=== PATIENT | male | born 1960 | race Caucasian/White ===

== ENCOUNTER 2017-02-24 19:29 | Inpatient (IN) | payer OTHER ==
[~2017-02-24] VITALS: Ht 167.6 cm; Wt 102.3 kg
[2017-02-24 20:03] VITALS: BP 181/86; PULSE 77; RESP 18; TEMP 98.7; O2SAT 92
[2017-02-25] VITALS (9 sets, daily range): BP systolic 131–184; BP diastolic 74–92; PULSE 64–92; RESP 16–18; TEMP 98–98.8; O2SAT 90–98
[2017-02-25] MEDS ORDERED: TETANUS/DIPHTHERIA TOXOID ADULT 0.5 ML VIAL IM ONE (00:30)
[2017-02-25] MEDS ORDERED: METF500T PO (00:42)
[2017-02-25] MEDS ORDERED: SIMV40TA PO ×2 (00:44→13:35)
[2017-02-25] MEDS ORDERED: HYDR25TA5 PO (00:44)
[2017-02-25] MEDS ORDERED: FLUO40CA PO (00:44)
[2017-02-25] MEDS ORDERED: GLIP10TA6 PO ×2 (00:44→13:35)
[2017-02-25] MEDS ORDERED: SODIUM CHLORIDE 0.9% FLUSH 10 ML FLUSH IV FLUSH PRN ×2 (00:45→01:45)
[2017-02-25] MEDS ORDERED: AMPICILLIN-SULBACTAM INJ 3 GM in SODIUM CHLORIDE 0.9% INJ 100 ML IV ONE (00:45)
[2017-02-25] MEDS ORDERED: MORPHINE SULFATE 4 MG/ML INJ IV PUSH ONE (00:45)
--- NOTE | 2017-02-25 00:53 | RADRPT ---
EXAM DATE/TIME: 02/25/2017 00:41 [facility] COMPARISON: No previous studies available for comparison. INDICATIONS : Dog bite right hand. MEDICAL HISTORY : None. SURGICAL HISTORY : None. ENCOUNTER: Initial ACUITY: 1 day PAIN SCORE: 6/10 LOCATION: Right hand. FINDINGS: There is a fracture of the distal phalanx right thumb with about 4 mm of displacement. Remote right f ifth metacarpal fracture. No radiopaque foreign body. CONCLUSION: 1. Fracture distal phalanx right thumb. No radiopaque foreign body. Alex Davila MD on February 25, 2017 at 0:50 Board Certified Radiologist. This report was verified electronically.
[2017-02-25 01:18] LABS: BASOPHIL # 0.1 TH/MM3 (0-0.2); BASOPHIL % 1.6 % (0.0-2.0); EOSINOPHIL # 0.2 TH/MM3 (0-0.4); EOSINOPHIL % 1.7 % (0.0-4.0); HEMATOCRIT 42.9 % (39.0-51.0); HEMO FLAGS DIFF FINAL; LYMPH % 23.6 % (9.0-44.0); LYMPHOCYTE # 2.2 TH/MM3 (1.0-4.8); MEAN CELL VOLUME 78.7 FL (80.0-100.0); MEAN CORPUSCULAR HEMOGLOBIN 25.4 PG (27.0-34.0); MEAN CORPUSCULAR HGB CONC 32.2 % (32.0-36.0); MONO % 8.1 % (0.0-8.0); PLATELET COUNT 292 TH/MM3 (150-450); RED BLOOD COUNT 5.45 MIL/MM3 (4.50-5.90); RED CELL DISTRIBUTION WIDTH 13.9 % (11.6-17.2); WHITE BLOOD COUNT 9.3 TH/MM3 (4.0-11.0)
[2017-02-25 01:28] LABS: POTASSIUM 3.9 MEQ/L (3.5-5.1)
[2017-02-25 01:31] LABS: BICARBONATE 27.4 MEQ/L (21.0-32.0)
[2017-02-25] MEDS ORDERED: SODIUM CHLOR 0.9% 1000 ML INJ 1,000 ML IV SCH (01:32)
[2017-02-25 01:34] LABS: APTT (PATIENT) 25.4 SEC (24.3-30.1); INTERNATIONAL NORMALIZED RATIO 0.9 RATIO; PROTHROMBIN TIME - PATIENT 10.4 SEC (9.8-11.6)
[2017-02-25] MEDS ORDERED: NALOXONE HCL 0.4 MG/ML AMP IV PRN (01:45)
--- NOTE | 2017-02-25 01:47 | PD ---
HPI Chief Complaint: Bite or Sting Time Seen by Provider: 00:27 Travel History International Travel<30 days: No Contact w/Intl Traveler<30days: No Traveled to known affect area: No History of Present Illness HPI 56-year-old male here for evaluation of dog bite to his right thumb. Patient reports that 2 of his dogs were playing with each other when he put his hand between them and was accidentally bitten by a history of an Arboleda. His dog is up-to-date with immunizations including rabies. He sustained a deep laceration to his right thumb as well as a puncture wound to his right index and middle fingers. Pain is moderate, constant, worse with movement and palpation. He denies any other injuries. Date of last tetanus was in 2010. Bite occurred at around 7:00 PM. [facility] Past Medical History High Cholesterol: Yes Diabetes: Yes Patient Takes Glucophage: Yes Hypertension: Yes Neurologic: Yes (CHRONIC PAIN) ?: Not Past Surgical History Abdominal Surgery: Yes (HERNIA) Social History Alcohol Use: No Tobacco Use: No Substance Use: No Allergies-Medications (Allergen,Severity, Reaction): Coded Allergies: No Known Allergies (Unverified , 02/25/17) Reported Meds & Prescriptions Reported Meds & Active Scripts Active Reported Hydrochlorothiazide 25 Mg Tab 25 Mg PO DAILY Simvastatin 40 Mg Tab 40 Mg PO HS Glipizide 10 Mg Tab 10 Mg PO DAILY Take 30 minutes before a meal Fluoxetine (Fluoxetine HCl) 40 Mg Cap 40 Cap PO DAILY Metformin (Metformin HCl) 500 Mg Tab 500 Mg PO BIDPC With meals Review of Systems Except as stated in HPI: all other systems reviewed are Neg Physical Exam Narrative GENERAL: Well-developed, well-nourished, comfortable, no apparent distress. SKIN: Deep laceration to right thumb through the nail bed extending laterally around to the volar aspect of the distal thumb. There is mild venous oozing. No obvious visible contaminants. The patient has a puncture wound to his right index finger lateral to the PIP joint. He also has a puncture wound to his right third finger over his proximal phalanx laterally/dorsally. CARDIOVASCULAR: Regular rate and rhythm. Normal capillary refill to all fingers and right hand. RESPIRATORY: No accessory muscle use. MUSCULOSKELETAL: Skin exam as above. Patient is able to extend his right thumb , however is having difficulty fully extending the thumb. Normal range of opposition and flexion of the right thumb. Normal capillary refill to the right thumb. There is obvious deformity to the distal phalanx of the thumb with likely open fracture. X-ray ordered. NEUROLOGICAL: Awake and alert. No obvious cranial nerve deficits. Motor grossly within normal limits. Normal speech. Patient reports sensation throughout his entire right thumb, however feels as though the distal aspect of the thumb is a little numb with pin prick testing. PSYCHIATRIC: Appropriate mood and affect; insight and judgment normal. Data Data Last Documented VS Vital Signs Date Time Temp Pulse Resp B/P (MAP) Pulse Ox O2 Delivery O2 Flow Rate FiO2 02/24/17 20:03 98.7 77 18 181/86 (117) 92 Orders Orders Hand, Complete ([id number]) (02/25/17 ) Tetanus/Diphtheria Tox Adult (Tetanus/Di (02/25/17 00:30) Basic Metabolic Panel (Bmp) (02/25/17 00:37) Complete Blood Count With Diff (02/25/17 00:37) Prothrombin Time / Inr (Pt) (02/25/17 00:37) Act Partial Throm Time (Ptt) (02/25/17 00:37) Iv Access Insert/Monitor (02/25/17 00:37) Sodium Chloride 0.9% Flush (Ns Flush) (02/25/17 00:45) Ampicillin-Sulbactam Inj (Unasyn Inj) (02/25/17 00:45) Morphine Inj (Morphine Inj) (02/25/17 00:45) Diet Npo (02/25/17 Breakfast) Consent (02/25/17 01:14) Consult Hand Surgery (02/25/17 ) Electrocardiogram (02/25/17 ) Chest, Single Ap (02/25/17 ) Admit Order (Ed Use Only) (02/25/17 01:30) Labs Laboratory Tests Test 02/25/17 01:10 White Blood Count 9.3 TH/MM3 Red Blood Count 5.45 MIL/MM3 Hemoglobin 13.8 GM/DL Hematocrit 42.9 % Mean Corpuscular Volume 78.7 FL Mean Corpuscular Hemoglobin 25.4 PG Mean Corpuscular Hemoglobin Concent 32.2 % Red Cell Distribution Width 13.9 % Platelet Count 292 TH/MM3 Mean Platelet Volume 8.6 FL Neutrophils (%) (Auto) 65.0 % Lymphocytes (%) (Auto) 23.6 % Monocytes (%) (Auto) 8.1 % Eosinophils (%) (Auto) 1.7 % Basophils (%) (Auto) 1.6 % Neutrophils # (Auto) 6.0 TH/MM3 Lymphocytes # (Auto) 2.2 TH/MM3 Monocytes # (Auto) 0.8 TH/MM3 Eosinophils # (Auto) 0.2 TH/MM3 Basophils # (Auto) 0.1 TH/MM3 CBC Comment DIFF FINAL Differential Comment Prothrombin Time 10.4 SEC Prothromb Time International Ratio 0.9 RATIO Activated Partial Thromboplast Time 25.4 SEC Blood Urea Nitrogen 22 MG/DL Creatinine 0.77 MG/DL Random Glucose 167 MG/DL Calcium Level 9.3 MG/DL Sodium Level 135 MEQ/L Potassium Level 3.9 MEQ/L Chloride Level 101 MEQ/L Carbon Dioxide Level 27.4 MEQ/L Anion Gap 7 MEQ/L Estimat Glomerular Filtration Rate 105 ML/MIN MDM Medical Decision Making Medical Screen Exam Complete: Yes Emergency Medical Condition: Yes Differential Diagnosis Dog bite, open fracture right thumb Narrative Course Vital signs reviewed. CBC is unremarkable. BMP is remarkable for random glucose 167, otherwise unremarkable. Right hand x-ray shows a fracture of the distal phalanx of the right thumb. No radiopaque foreign bodies. Patient has a deep laceration of the right thumb over the distal phalanx fracture. This laceration extends from the nail bed laterally to the volar aspect of the thumb. There are no obvious contaminants. This is the patient's dominant hand. Pain is moderate. Patient has sensation throughout the right thumb as well as all fingers in his right hand, however he feels that the distal tip of his thumb is becoming a little numb. Normal capillary refill to all fingers and right hand. Patient is able to flex and oppose his right thumb with normal range of motion and is able to extend his thumb, however is having difficulty fully extending the thumb. Wound was irrigated with copious amounts of normal saline, and a sterile nonadherent dressing was applied. Tetanus updated and the patient was given a dose of 3 g of IV Unasyn. Case was discussed with on-call hand surgeon Dr. Crawford who would like to take the patient to the operating room for exploration and washout of the wound. Patient made aware of all findings and plan for admission so he can be taken to the OR by the hand surgeon. He is amenable to this plan. He'll need to be admitted to our main hospital as the operating room in [place] is currently not in use. Case discussed with hospitalist Dr. Vazquez who will admit the patient to her service. Pre-op cxr and EKG ordered by me. Diagnosis Primary Impression: Dog bite Qualified Codes: W54.0XXA - Bitten by dog, initial encounter Additional Impression: Open fracture of distal phalanx of right thumb Qualified Codes: S62.521B - Displaced fracture of distal phalanx of right thumb, initial encounter for open fracture Admitting Information Admitting Physician Requests: Observation Renny Hanley MD Feb 25, 2017 01:47
--- NOTE | 2017-02-25 02:13 | RADRPT ---
EXAM DATE/TIME: 02/25/2017 01:34 [facility] COMPARISON: No previous studies available for comparison. INDICATIONS : Evaluate for pneumonia, pneumothorax, and communicable disease. Pre op for right hand surgery. MEDICAL HISTORY : Diabetes mellitus type II. SURGICAL HISTORY : None. ENCOUNTER: Initial ACUITY: 1 day PAIN SCORE: 0/10 LOCATION: Bilateral chest FINDINGS: A single view of the chest demonstrates the lungs to be symmetrically aerated without evidence of mas s, infiltrate or effusion. Density overlying upper right hemithorax most characteristic of a pleural calcification, although finding not definitive. Heart size normal. CONCLUSION: 1. Large right-sided calcification in the upper hemithorax most characteristic of pleural calcificati on from prior infection. No focal lung consolidation or effusion. Alex Davila MD on February 25, 2017 at 2:09 Board Certified Radiologist. This report was verified electronically.
[2017-02-25] MEDS: HYDROmorphone HCL PF 1 MG/ML VIAL IV PUSH PRN ×4 (03:12→22:32)
[2017-02-25] MEDS: AMPICILLIN-SULBACTAM INJ 3 GM in SODIUM CHLORIDE 0.9% INJ 100 ML IV SCH ×3 (05:29→18:29)
[2017-02-25] MEDS: SODIUM CHLORIDE 0.9% FLUSH 10 ML FLUSH IV FLUSH SCH ×2 (08:07→20:31)
[2017-02-25] MEDS ORDERED: LIDOCAINE HCL 1% 50 ML VIAL ONE (08:14)
[2017-02-25] MEDS ORDERED: BUPIVACAINE HCL PF 0.5% 30 ML VIAL ONE (08:14)
[2017-02-25] MEDS ORDERED: ONDANSETRON HCL 4 MG/2 ML VIAL IV PUSH ONE (09:14)
[2017-02-25] MEDS ORDERED: PROPOFOL 200 MG/20 ML AMP IV ONE (09:14)
[2017-02-25] MEDS ORDERED: ACETAMINOPHEN 325 MG TAB PO PRN (10:15)
[2017-02-25] MEDS ORDERED: ENALAPRILAT 2.5 MG/2 ML VIAL IV PUSH PRN (10:15)
[2017-02-25] MEDS ORDERED: DEXTROSE 50% IN WATER 50 ML VIAL(D50) IV PRN (10:15)
[2017-02-25] MEDS ORDERED: GLUCAGON 1 MG/ML VIAL OTHER PRN (10:15)
[2017-02-25] MEDS ORDERED: TEMAZEPAM 15 MG CAP PO PRN (10:15)
[2017-02-25] MEDS ORDERED: ONDANSETRON HCL 4 MG/2 ML VIAL IV PRN (10:15)
[2017-02-25] MEDS ORDERED: DOCUSATE SODIUM 50 MG/SENNA 8.6 MG TAB PO PRN (10:15)
[2017-02-25] MEDS ORDERED: ACETAMINOPHEN 1000 MG/100 ML 100 ML IV ONE (10:17)
[2017-02-25] MEDS ORDERED: MIDAZOLAM HCL 2 MG/2 ML VIAL ONE (10:17)
[2017-02-25] MEDS ORDERED: HYDROmorphone HCL PF 2 MG/ML VIAL ONE (10:18)
[2017-02-25] MEDS ORDERED: LIDOCAINE HCL 2% 50 ML VIAL ONE (10:18)
--- NOTE | 2017-02-25 10:21 | HHI.HP ---
HPI Service [facility] Primary Care Physician [facility] Admission Diagnosis dog bite/open fracture to right thumb Diagnoses: (1) Hypertension (2) Hyperlipidemia (3) Diabetes mellitus, type 2 (4) Open fracture of distal phalanx of right thumb (5) Dog bite Chief Complaint: Right thumb pain status post dog bite Travel History International Travel<30 Days: No Contact w/Intl Traveler <30 Da: No Traveled to Known Affected Are: No History of Present Illness 56-year-old male with history of diabetes type 2, hypertension and hyperlipidemia came to the ED for evaluation of dog bite to his right thumb. Patient states he was trying to separate with his dogs were fighting, when his hand Accidentally got inside of his French xie's mouth. He was then bitten to his right thumb and sustained a deep laceration as a result. He also had puncture wound to his right index and middle fingers. Stated the pain was severe. He reports his dogs vaccine up-to-date. She has no other issue and denies any GI bleed, febrile episode or chest pain. Review of Systems Except as stated in HPI: all other systems reviewed are Neg Past Family Social History Past Medical History Hyperlipidemia Diabetes Anxiety Hypertension Neurologic: Yes (CHRONIC PAIN) Past Surgical History No previous surgeries Reported Medications Hydrochlorothiazide 25 Mg Tab 25 Mg PO DAILY Simvastatin 40 Mg Tab 40 Mg PO HS Glipizide 10 Mg Tab 10 Mg PO DAILY Take 30 minutes before a meal Fluoxetine (Fluoxetine HCl) 40 Mg Cap 40 Cap PO DAILY Metformin (Metformin HCl) 500 Mg Tab 500 Mg PO BIDPC With meals Allergies: Coded Allergies: No Known Allergies (Unverified , 02/25/17) Family History Mother from complication from pancreatic cancer Father with history of diabetes, hypertension, hyperlipidemia Social History Alcohol Use: No Tobacco Use: No Substance Use: No Physical Exam Vital Signs Vital Signs Date Time Temp Pulse Resp B/P (MAP) Pulse Ox O2 Delivery O2 Flow Rate FiO2 02/25/17 07:20 98.1 65 18 147/75 (99) 95 02/25/17 06:54 66 02/25/17 05:00 98.4 68 18 147/74 (98) 97 02/25/17 04:42 98.8 92 18 153/74 (100) 90 02/25/17 04:12 02/25/17 02:13 68 18 152/89 (110) 98 Room Air 02/24/17 20:03 98.7 77 18 181/86 (117) 92 Physical Exam GENERAL: This is a well-nourished, well-developed patient, in no apparent distress. SKIN: No rashes, ecchymoses or lesions. Cool and dry. Dressing over right thumb HEAD: Atraumatic. Normocephalic. No temporal or scalp tenderness. EYES: Pupils equal round and reactive. Extraocular motions intact. No scleral icterus. No injection or drainage. ENT: Nose without bleeding, purulent drainage or septal hematoma. Throat without erythema, tonsillar hypertrophy or exudate. Uvula midline. Airway patent. NECK: Trachea midline. No JVD or lymphadenopathy. Supple, nontender, no meningeal signs. CARDIOVASCULAR: Regular rate and rhythm without murmurs, gallops, or rubs. RESPIRATORY: Clear to auscultation. Breath sounds equal bilaterally. No wheezes , rales, or rhonchi. GASTROINTESTINAL: Abdomen soft, non-tender, nondistended. No hepato-splenomegaly , or palpable masses. No guarding. MUSCULOSKELETAL: Extremities without clubbing, cyanosis, or edema. No joint tenderness, effusion, or edema noted. No calf tenderness. Negative Homans sign bilaterally. NEUROLOGICAL: Awake and alert. Cranial nerves II through XII intact. Motor and sensory grossly within normal limits. Five out of 5 muscle strength in all muscle groups. Normal speech. Laboratory Laboratory Tests Test 02/25/17 01:10 White Blood Count 9.3 Red Blood Count 5.45 Hemoglobin 13.8 Hematocrit 42.9 Mean Corpuscular Volume 78.7 Mean Corpuscular Hemoglobin 25.4 Mean Corpuscular Hemoglobin Concent 32.2 Red Cell Distribution Width 13.9 Platelet Count 292 Mean Platelet Volume 8.6 Neutrophils (%) (Auto) 65.0 Lymphocytes (%) (Auto) 23.6 Monocytes (%) (Auto) 8.1 Eosinophils (%) (Auto) 1.7 Basophils (%) (Auto) 1.6 Neutrophils # (Auto) 6.0 Lymphocytes # (Auto) 2.2 Monocytes # (Auto) 0.8 Eosinophils # (Auto) 0.2 Basophils # (Auto) 0.1 CBC Comment DIFF FINAL Differential Comment Prothrombin Time 10.4 Prothromb Time International Ratio 0.9 Activated Partial Thromboplast Time 25.4 Blood Urea Nitrogen 22 Creatinine 0.77 Random Glucose 167 Calcium Level 9.3 Sodium Level 135 Potassium Level 3.9 Chloride Level 101 Carbon Dioxide Level 27.4 Anion Gap 7 Estimat Glomerular Filtration Rate 105 Result Diagram: 02/25/17 0110 02/25/17 0110 Imaging Last Impressions Hand X-Ray 02/25/17 0000 Signed Impressions: Service Date/Time: Saturday, February 25, 2017 00:41 - CONCLUSION: 1. Fracture distal phalanx right thumb. No radiopaque foreign body. Alex Davila MD Chest X-Ray 02/25/17 0000 Signed Impressions: Service Date/Time: Saturday, February 25, 2017 01:34 - CONCLUSION: 1. Large right-sided calcification in the upper hemithorax most characteristic of pleural calcification from prior infection. No focal lung consolidation or effusion. Alex Davila MD Caprini VTE Risk Assessment Caprini VTE Risk Assessment: No/Low Risk (score <= 1) Caprini Risk Assessment Model Point Value = 1 Point Value = 2 Point Value = 3 Point Value = 5 Age 41-60 Minor surgery BMI > 25 kg/m2 Swollen legs Varicose veins or History of unexplained or recurrent spontaneous Oral contraceptives or hormone replacement Sepsis (< 1 month) Serious lung disease, including pneumonia (< 1 month) Abnormal pulmonary function Acute myocardial infarction Congestive heart failure (< 1 month) History of inflammatory bowel disease Medical patient at bed rest Age 61-74 Arthroscopic surgery Major open surgery (> 45 min) Laparoscopic surgery (> 45 min) Malignancy Confined to bed (> 72 hours) Immobilizing plaster cast Central venous access Age >= 75 History of VTE Family history of VTE Factor V Leiden Prothrombin [id number] Lupus anticoagulant Anticardiolipin antibodies Elevated serum homocysteine Heparin-induced thrombocytopenia Other congenital or acquired thrombophilia Stroke (< 1 month) Elective arthroplasty Hip, pelvis, or leg fracture Acute spinal cord injury (< 1 month) Prophylaxis Regimen Total Risk Factor Score Risk Level Prophylaxis Regimen 0-1 Low Early ambulation 2 Moderate Order ONE of the following: *Sequential Compression Device (SCD) *Heparin 5000 units SQ BID 3-4 Higher Order ONE of the following medications: *Heparin 5000 units SQ TID *Enoxaparin/Lovenox 40 mg SQ daily (WT < 150 kg, CrCl > 30 mL/min) *Enoxaparin/Lovenox 30 mg SQ daily (WT < 150 kg, CrCl > 10-29 mL/min) *Enoxaparin/Lovenox 30 mg SQ BID (WT < 150 kg, CrCl > 30 mL/min) AND/OR *Sequential Compression Device (SCD) 5 or more Highest Order ONE of the following medications: *Heparin 5000 units SQ TID (Preferred with Epidurals) *Enoxaparin/Lovenox 40 mg SQ daily (WT < 150 kg, CrCl > 30 mL/min) *Enoxaparin/Lovenox 30 mg SQ daily (WT < 150 kg, CrCl > 10-29 mL/min) *Enoxaparin/Lovenox 30 mg SQ BID (WT < 150 kg, CrCl > 30 mL/min) AND *Sequential Compression Device (SCD) Assessment and Plan Problem List: (1) Dog bite ICD Code: W54.0XXA - Bitten by dog, initial encounter Status: Acute (2) Open fracture of distal phalanx of right thumb ICD Code: S62.521B - Displaced fracture of distal phalanx of right thumb, initial encounter for open fracture Status: Acute Assessment and Plan 56-year-old man with Fracture distal phalanx right thumb Dog bite X-ray noted and review with finding of fracture distal phalanx right thumb Hand surgery consultation for evaluation for possible incision and drainage as well as repair Currently on Unasyn IV pending culture report Pain management accordingly History of diabetes type 2 Start insulin sliding scale, resume oral hypoglycemic agents after patient procedure today Hypertension Resume hydrochlorothiazide Hyperlipidemia Resume statin DVT prophylaxis: Bilateral SCDs Code Status Full code Discussed Condition With Patient Physician Certification 2 Midnight Certification Type: Admission for Inpatient Services Order for Inpatient Services The services are ordered in accordance with Medicare regulations or non- Medicare payer requirements, as applicable. In the case of services not specified as inpatient-only, they are appropriately provided as inpatient services in accordance with the 2-midnight benchmark. Estimated LOS (days): 2 days is the estimated time the patient will need to remain in the hospital, assuming treatment plan goals are met and no additional complications. Post-Hospital Plan: Not yet determined Problem Qualifiers (1) Open fracture of distal phalanx of right thumb: Qualified Codes: S62.521B - Displaced fracture of distal phalanx of right thumb , initial encounter for open fracture (2) Dog bite: Qualified Codes: W54.0XXA - Bitten by dog, initial encounter Gary Norris MD Feb 25, 2017 10:21
[2017-02-25] MEDS ORDERED: RESP: ALBUTEROL 2.5 MG/IPRATROPIUM 0.5 MG NEB (PRN) NEB (10:30)
[2017-02-25] MEDS ORDERED: BACITRACIN TOP OINT 15 GM TUBE ONE (11:09)
[2017-02-25] MEDS ORDERED: AMPICILLIN-SULBACTAM INJ 3 GM VIAL IV ONE (11:15)
[2017-02-25] MEDS ORDERED: NEOMYCIN/POLYMYXIN 1 ML G.U. IRRIGANT IRRIGATION ONE (11:32)
[2017-02-25] MEDS ORDERED: DO NOT ADM ANY ANTICOAGULANT DRUGS PRN (12:05)
[2017-02-25] MEDS: INSULIN ASPART SUPPLEMENTAL SCALE SQ SCH ×3 (12:28→21:00)
--- NOTE | 2017-02-25 12:34 | PD.ORT.PN ---
Subjective Subjective Remarks Please see dictated note for full details. Patient comfortable in recovery room. Objective Vitals Vital Signs Date Time Temp Pulse Resp B/P (MAP) Pulse Ox O2 Delivery O2 Flow Rate FiO2 02/25/17 08:42 18 02/25/17 07:20 98.1 65 18 147/75 (99) 95 02/25/17 06:54 66 02/25/17 05:00 98.4 68 18 147/74 (98) 97 02/25/17 04:42 98.8 92 18 153/74 (100) 90 02/25/17 04:12 02/25/17 02:13 68 18 152/89 (110) 98 Room Air 02/24/17 20:03 98.7 77 18 181/86 (117) 92 I/O 02/24/17 02/24/17 02/24/17 02/25/17 02/25/17 02/25/17 06:59 14:59 22:59 06:59 14:59 22:59 Intake Total 400 ml Output Total 5 ml Balance 395 ml Intake IV Total 400 ml Output Estimated Blood Loss 5 ml Result Diagram: 02/25/17 0110 02/25/17 0110 Other Results Laboratory Tests Test 02/25/17 01:10 Prothromb Time International Ratio 0.9 RATIO Prothrombin Time 10.4 SEC (9.8-11.6) Imaging Last 24 hours Impressions Hand X-Ray 02/25/17 0000 Signed Impressions: Service Date/Time: Saturday, February 25, 2017 00:41 - CONCLUSION: 1. Fracture distal phalanx right thumb. No radiopaque foreign body. Alex Davila MD Chest X-Ray 02/25/17 0000 Signed Impressions: Service Date/Time: Saturday, February 25, 2017 01:34 - CONCLUSION: 1. Large right-sided calcification in the upper hemithorax most characteristic of pleural calcification from prior infection. No focal lung consolidation or effusion. Alex Davila MD Objective Remarks Splint in place right thumb, <2 sec capillary refill right thumb Assessment & Plan Assessment and Plan 56yM pmhx significant for DM2 POD0 s/p I&D open right thumb distal phalanx fracture, nail bed repair and closed reduction right thumb, I&D right middle finger -NWB right thumb, keep splint in place until followup next 03/05 in [place] -Recommend IV Ab for at least 24-48 hrs due to dog bite and hx dm, then d/c on oral antibiotics -Pain control and DM management per primary team Mariana Crawford MD Feb 25, 2017 12:33
[2017-02-25] MEDS ORDERED: LACTATED RINGER'S 1000 ML INJ 1,000 ML ONE (13:16)
[2017-02-25] MEDS ORDERED: DULO1CAP3 PO (13:35)
[2017-02-25] MEDS ORDERED: ASPI81CH3 CHEW (13:35)
[2017-02-25] MEDS ORDERED: METF1000 PO (13:35)
[2017-02-25] MEDS ORDERED: MONT10TA4 PO (13:35)
[2017-02-25] MEDS ORDERED: GABA100C4 PO (13:35)
[2017-02-25] MEDS ORDERED: PRAZ2 PO (13:35)
[2017-02-25] MEDS ORDERED: DOXE50CA3 PO (13:35)
[2017-02-25] MEDS ORDERED: HYDR12.56 PO (13:35)
--- NOTE | 2017-02-25 14:07 | EKG ---
Date Performed: 02/25/2017 Time Performed: 01:40:20 PTAGE: 56 years EKG: Sinus rhythm NORMAL ECG NO PREVIOUS TRACING DOCTOR: Jing Montgomery Interpretating Date/Time 02/25/2017 14:05:15
[2017-02-25] MEDS: ACETAMINOPHEN/HYDROcodone 325 MG/7.5 MG TAB PO PRN ×2 (17:11→21:48)
[2017-02-25] MEDS ORDERED: metFORMIN HCL 500 MG TAB PO SCH (18:00)
[2017-02-25] MEDS: metFORMIN HCL 500 MG TAB PO SCH (18:28)
[2017-02-25] MEDS: GABAPENTIN 400 MG CAP PO SCH (18:28)
[2017-02-25] MEDS: glipiZIDE 10 MG TAB PO SCH (18:28)
[2017-02-25] MEDS ORDERED: PRAZOSIN HCL 2 MG CAP PO SCH (21:00)
[2017-02-25] MEDS ORDERED: DOXEPIN HCL 50 MG CAP PO SCH (21:00)
[2017-02-25] MEDS ORDERED: PRAVASTATIN SOD 80 MG TAB PO SCH (21:00)
[2017-02-26] MEDS: AMPICILLIN-SULBACTAM INJ 3 GM in SODIUM CHLORIDE 0.9% INJ 100 ML IV SCH ×3 (00:02→12:24)
[2017-02-26 01:12] VITALS: BP 140/76; PULSE 70; RESP 16; TEMP 98; O2SAT 91
[2017-02-26 04:36] VITALS: BP 154/77; PULSE 84; RESP 20; TEMP 97.3; O2SAT 93
[2017-02-26] MEDS: ACETAMINOPHEN/HYDROcodone 325 MG/7.5 MG TAB PO PRN (06:05)
[2017-02-26 07:10] VITALS: BP 126/67; PULSE 76; RESP 16; TEMP 98.5; O2SAT 96
[2017-02-26] MEDS: INSULIN ASPART SUPPLEMENTAL SCALE SQ SCH ×3 (07:42→12:00)
[2017-02-26] MEDS: metFORMIN HCL 500 MG TAB PO SCH (08:23)
[2017-02-26] MEDS: GABAPENTIN 400 MG CAP PO SCH ×2 (08:23→13:48)
[2017-02-26] MEDS: glipiZIDE 10 MG TAB PO SCH (08:24)
[2017-02-26] MEDS: SODIUM CHLORIDE 0.9% FLUSH 10 ML FLUSH IV FLUSH SCH (08:24)
[2017-02-26] MEDS ORDERED: DULoxetine HCl DR 60 MG CAP PO SCH (09:00)
[2017-02-26] MEDS ORDERED: glipiZIDE 10 MG TAB PO SCH (09:00)
[2017-02-26] MEDS ORDERED: ASPIRIN 81 MG CHEW TAB CHEW SCH (09:00)
[2017-02-26] MEDS ORDERED: HYDROCHLOROTHIAZIDE 12.5 MG CAP PO SCH (09:00)
[2017-02-26] MEDS ORDERED: MONTELUKAST SODIUM 10 MG TAB PO SCH (09:00)
[2017-02-26] MEDS ORDERED: FLUoxetine HCL 20 MG CAP PO SCH (09:00)
[2017-02-26] MEDS ORDERED: HYDROCHLOROTHIAZIDE 25 MG TAB PO SCH (09:00)
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
[2017-02-26] MEDS: HYDROmorphone HCL PF 1 MG/ML VIAL IV PUSH PRN (09:59)
--- NOTE | 2017-02-26 11:58 | HHI.PR ---
Subjective Remarks Patient in bed. Says he has constipation since Friday. No fevr or chills. Pain is controlled by meds. No n/v/d/c. Wabts top go home. Has electricity at home after [employer] and ready to go home. Objective Vitals Vital Signs Date Time Temp Pulse Resp B/P (MAP) Pulse Ox O2 Delivery O2 Flow Rate FiO2 02/26/17 10:29 18 02/26/17 07:10 98.5 76 16 126/67 (86) 96 02/26/17 06:44 20 02/26/17 04:36 97.3 84 20 154/77 (102) 93 02/26/17 01:12 98.0 70 16 140/76 (97) 91 02/25/17 21:19 98.3 81 18 184/92 (122) 94 02/25/17 17:39 98.4 73 16 131/78 (95) 94 02/25/17 13:12 98.0 64 16 132/76 (94) 95 02/25/17 12:45 97.4 76 14 128/63 (84) 94 Nasal Cannula 2 02/25/17 12:30 70 14 137/68 (91) 95 Nasal Cannula 2 02/25/17 12:15 77 14 139/67 (91) 92 Nasal Cannula 2 02/25/17 12:05 97.5 76 14 128/63 (84) 94 Nasal Cannula 4 I/O 02/25/17 02/25/17 02/25/17 02/26/17 02/26/17 02/26/17 07:00 15:00 23:00 07:00 15:00 23:00 Intake Total 450 ml 680 ml Output Total 5 ml 0 ml Balance 445 ml 680 ml Intake Oral 480 ml IV Total 450 ml 200 ml Output Emesis 0 ml Estimated Blood Loss 5 ml # Voids 4 # Bowel Movements 0 Result Diagram: 02/25/17 0110 02/25/17 0110 Imaging Last Impressions Hand X-Ray 02/25/17 0000 Signed Impressions: Service Date/Time: Saturday, February 25, 2017 00:41 - CONCLUSION: 1. Fracture distal phalanx right thumb. No radiopaque foreign body. Alex Davila MD Chest X-Ray 02/25/17 0000 Signed Impressions: Service Date/Time: Saturday, February 25, 2017 01:34 - CONCLUSION: 1. Large right-sided calcification in the upper hemithorax most characteristic of pleural calcification from prior infection. No focal lung consolidation or effusion. Alex Davila MD Objective Remarks GENERAL: This is a well-nourished, well-developed patient, in no apparent distress. SKIN: Splint in place CARDIOVASCULAR: Regular rate and rhythm without murmurs, gallops, or rubs. RESPIRATORY: Clear to auscultation. Breath sounds equal bilaterally. No wheezes , rales, or rhonchi. GASTROINTESTINAL: Abdomen soft, non-tender, nondistended. No hepato-splenomegaly , or palpable masses. No guarding. MUSCULOSKELETAL: Extremities without clubbing, cyanosis, or edema. No joint tenderness, effusion, or edema noted. No calf tenderness. Negative Homans sign bilaterally. NEUROLOGICAL: Awake and alert. Cranial nerves II through XII intact. Motor and sensory grossly within normal limits. Five out of 5 muscle strength in all muscle groups. Normal speech. Procedures 02/25/17 S/P open right thumb distal phalanx fracture, nail bed repair and closed reduction right thumb, I&D right middle finger A/P Problem List: (1) Hypertension ICD Code: I10 - Essential (primary) hypertension Status: Chronic (2) Hyperlipidemia ICD Code: E78.5 - Hyperlipidemia, unspecified Status: Chronic (3) Diabetes mellitus, type 2 ICD Code: E11.9 - Type 2 diabetes mellitus without complications Status: Chronic (4) Open fracture of distal phalanx of right thumb ICD Code: S62.521B - Displaced fracture of distal phalanx of right thumb, initial encounter for open fracture Status: Acute (5) Dog bite ICD Code: W54.0XXA - Bitten by dog, initial encounter Status: Acute Assessment and Plan 56-year-old man with Fracture distal phalanx right thumb Dog bite X-ray noted and review with finding of fracture distal phalanx right thumb Hand surgery consultation s.p incision and drainage as well as repair by hand surgeon. Recommends 24-48 hrs of IV antibiotic and can be DC home on PO antibiotic. To follow up as OP Received Unasyn IV . S/P open right thumb distal phalanx fracture, nail bed repair and closed reduction right thumb, I&D right middle finger NWB right thumb, keep splint in place until followup next 03/05 in [place] per hand surgeon IV Ab for at least 24-48 hrs due to dog bite and hx dm, then d/c on oral antibiotics Pain management accordingly History of diabetes type 2 Start insulin sliding scale, resume oral hypoglycemic agents after patient procedure today Hypertension Resume hydrochlorothiazide Hyperlipidemia Resume statin DVT prophylaxis: Bilateral SCDs Code Status Full code Discussed Condition With Patient, nurse, family at bedside Discharge Planning DC home in stable condition To follow up as OP with PCP and consultants. Meds per meds reconciliations Activity ad nando as tolerated. NWB on affected limb, to follow up as OP with hand surgeon. Do not drive. Diet: healthy heart diet and diabetic diet Problem Qualifiers (1) Open fracture of distal phalanx of right thumb: Qualified Codes: S62.521B - Displaced fracture of distal phalanx of right thumb , initial encounter for open fracture (2) Dog bite: Qualified Codes: W54.0XXA - Bitten by dog, initial encounter Kimberley Perry MD Feb 26, 2017 11:58
[2017-02-26] MEDS ORDERED: NORC5TAB PO (12:19)
[2017-02-26] MEDS ORDERED: LACTCHW3 CHEW (12:22)
[2017-02-26] MEDS ORDERED: AUGM875T3 PO (12:22)
[2017-02-26] MEDS ORDERED: DOCU100C PO (12:22)
--- NOTE | 2017-02-26 12:24 | HHI.DS ---
Discharge Summary Admission Date Feb 25, 2017 at 01:35 Discharge Date: Feb 26, 2017 Admitting Diagnosis dog bite/open fracture to right thumb (1) Hypertension ICD Code: I10 - Essential (primary) hypertension Diagnosis: Secondary Status: Chronic (2) Hyperlipidemia ICD Code: E78.5 - Hyperlipidemia, unspecified Diagnosis: Secondary Status: Chronic (3) Diabetes mellitus, type 2 ICD Code: E11.9 - Type 2 diabetes mellitus without complications Diagnosis: Secondary Status: Chronic (4) Open fracture of distal phalanx of right thumb ICD Code: S62.521B - Displaced fracture of distal phalanx of right thumb, initial encounter for open fracture Status: Acute (5) Dog bite ICD Code: W54.0XXA - Bitten by dog, initial encounter Status: Acute Brief History - From Admission 56-year-old male with history of diabetes type 2, hypertension and hyperlipidemia came to the ED for evaluation of dog bite to his right thumb. Patient states he was trying to separate with his dogs were fighting, when his hand Accidentally got inside of his Spanish xie's mouth. He was then bitten to his right thumb and sustained a deep laceration as a result. He also had puncture wound to his right index and middle fingers. Stated the pain was severe. He reports his dogs vaccine up-to-date. She has no other issue and denies any GI bleed, febrile episode or chest pain. CBC/BMP: 02/25/17 0110 02/25/17 0110 Significant Findings Laboratory Tests Test 02/25/17 01:10 Mean Corpuscular Volume 78.7 FL (80.0-100.0) Mean Corpuscular Hemoglobin 25.4 PG (27.0-34.0) Monocytes (%) (Auto) 8.1 % (0.0-8.0) Blood Urea Nitrogen 22 MG/DL (7-18) Random Glucose 167 MG/DL (74-106) Sodium Level 135 MEQ/L (136-145) Imaging Last Impressions Hand X-Ray 02/25/17 0000 Signed Impressions: Service Date/Time: Saturday, February 25, 2017 00:41 - CONCLUSION: 1. Fracture distal phalanx right thumb. No radiopaque foreign body. Alex Davila MD Chest X-Ray 02/25/17 0000 Signed Impressions: Service Date/Time: Saturday, February 25, 2017 01:34 - CONCLUSION: 1. Large right-sided calcification in the upper hemithorax most characteristic of pleural calcification from prior infection. No focal lung consolidation or effusion. Alex Davila MD PE at Discharge GENERAL: This is a well-nourished, well-developed patient, in no apparent distress. SKIN: Dressing over right thumb CARDIOVASCULAR: Regular rate and rhythm without murmurs, gallops, or rubs. RESPIRATORY: Clear to auscultation. Breath sounds equal bilaterally. No wheezes , rales, or rhonchi. GASTROINTESTINAL: Abdomen soft, non-tender, nondistended. No hepato-splenomegaly , or palpable masses. No guarding. MUSCULOSKELETAL: Extremities without clubbing, cyanosis, or edema. No joint tenderness, effusion, or edema noted. No calf tenderness. Negative Homans sign bilaterally. NEUROLOGICAL: Awake and alert. Cranial nerves II through XII intact. Motor and sensory grossly within normal limits. Five out of 5 muscle strength in all muscle groups. Normal speech. Pt Condition on Discharge: Stable Discharge Disposition: Discharge Home Discharge Time: > 30 minutes Discharge Instructions DIET: Follow Instructions for: As Tolerated, No Restrictions Activities you can perform: Non Weight Bearing Other Activity Instructions: on afected limb, follow up with hand surgeon Kimberley Perry MD Feb 26, 2017 12:24
[2017-02-26] MEDS ORDERED: LACTULOSE SYRUP 20 GM/30 ML CUP PO PRN (12:30)
[2017-02-26] MEDS ORDERED: MAGNESIUM HYDROXIDE SUSP 30 ML CUP PO PRN (12:30)
[2017-02-26] MEDS ORDERED: NALOXONE HCL 0.4 MG/ML AMP IV PUSH PRN (12:30)
[2017-02-26] MEDS ORDERED: SENNOSIDES 8.6 MG TAB PO PRN (12:30)
[2017-02-26] MEDS ORDERED: BISACODYL 10 MG SUPP RECTAL PRN (12:30)
[2017-02-26 13:41] VITALS: BP 168/86; PULSE 69; RESP 16; TEMP 97.7; O2SAT 95
[2017-02-26] MEDS ORDERED: DOCUSATE SODIUM 50 MG/SENNA 8.6 MG TAB PO SCH (21:00)
--- NOTE | 2017-02-27 07:23 | MP ---
cc: MARIANA CRAWFORD DATE OF SURGERY 02/25/2017 PREOPERATIVE DIAGNOSIS 1. Open displaced fracture right thumb distal phalanx. 2. Nail bed laceration right thumb. 3. Dog Bite right middle finger. POSTOPERATIVE DIAGNOSIS 1. Open displaced fracture right thumb distal phalanx. 2. Nail bed laceration right thumb. 3. Dog Bite right middle finger. PROCEDURE 1. Irrigation and debridement open fracture right thumb including skin, subcutaneous tissue, muscle and bone. 2. Open reduction right thumb distal phalanx fracture. 3. Nail bed repair right thumb. 4. Interpretation of fluoroscopy of the right thumb by the surgeon throughout the procedure. 5. Irrigation and debridement bite right middle finger SURGEON Mariana Crawford MD ANESTHESIA General and local. TOURNIQUET TIME 29 minutes at 250 mmHg INDICATIONS FOR THE PROCEDURE Juan Manuel Sinclair is a pleasant 56-year-old right-hand dominant male who sustained a dog bite to the right thumb and a superficial bite over the volar aspect of the right middle finger and presents for evaluation. He was noted to have an open displaced fracture of the right thumb as well as nailbed laceration and wants to proceed with surgical intervention. The risks were explained, but not limited to wound complications, infection, nail deformity, stiffness, pain, need for additional surgeries and he elected to proceed. DESCRIPTION OF THE PROCEDURE The patient was identified in the preoperative holding area and the extremity was marked. The patient was taken back to the operating room, anesthesia was induced. The right extremity was prepped and draped in a normal sterile fashion. The open fracture was debrided with three liters of antibiotic saline Using a curette. The nail plate was removed as I was unable to see the nail bed laceration with the nail plate in place. This was saved for later use. There was an oblique nail bed laceration just distal to the germinal matrix. It then was irrigated and debrided, then the nail bed was repaired with 4-0 chromic using a microsurgical technique. Following this under x-rays, there was significantly improved alignment of the displaced fracture of the right middle finger. Previously there was a significantly displaced open fracture of the right thumb distal phalanx. Again, this was reduced using manipulation and repair of the nail bed. The decision made not to place a K-wire. The nail plate was then sutured in place using a chromic. AP and lateral x-rays of the right thumb were reviewed by the surgeon and a copy was placed on the chart to confirm adequate reduction of the fracture. Then the bite over the right middle finger was also irrigated, but this appeared superficial and was left open. The patient was then placed into a thumb spica splint after 10 cc of 2% lidocaine with epinephrine used to perform local anesthesia. The patient will remain in the hospital on IV antibiotics and will follow up in approximately one week. MD ARINA Bolanos/ELI /12:25 PM /7:10 AM GAYATRI
== END 2017-02-26 14:39 | disposition home or self-care (01) | DRG 514 ==
LOC: PHED 19:29 → PHEDA 02-25 01:33 → OBSVTOIN 02-25 01:35 → NEPHCDU 02-25 04:28
PROVIDERS: ADMIT Hospitalist; ATTEND Hospitalist
PROC: 0HQQXZZ Repair Finger Nail, External Approach (ICD-10-PCS; 2017-02-25)
PROC: 3E10X8Z Irrigation of Skin and Mucous Membranes using Irrigating Substance (ICD-10-PCS; 2017-02-25)
PROC: 0PSR04Z Reposition Right Thumb Phalanx with Internal Fixation Device, Open Approach (ICD-10-PCS; principal; 2017-02-25 10:20)
DX: S62.521B Displaced fracture of distal phalanx of right thumb, initial encounter for open fracture (principal); I10 Essential (primary) hypertension; S61.051A Open bite of right thumb without damage to nail, initial encounter; S61.250A Open bite of right index finger without damage to nail, initial encounter; S61.252A Open bite of right middle finger without damage to nail, initial encounter; E11.9 Type 2 diabetes mellitus without complications; E78.5 Hyperlipidemia, unspecified; G89.29 Other chronic pain; F41.9 Anxiety disorder, unspecified; W54.0XXA Bitten by dog, initial encounter; K59.00 Constipation, unspecified; Y93.89 Activity, other specified; Y92.9 Unspecified place or not applicable; Y99.9 Unspecified external cause status; Z82.49 Family history of ischemic heart disease and other diseases of the circulatory system; Z83.3 Family history of diabetes mellitus; Z80.0 Family history of malignant neoplasm of digestive organs
CPT/HCPCS: 71010; 73130; 76000; 80048; 82948; 85025; 85610; 85730; 90714; 93005; 96374; 99285; J0131; J0295; J1170; J2250; J2270; J2405; J3010; J7030; J7120; L3808